=== PATIENT | male | born 1970 | race Caucasian/White ===

== ENCOUNTER 2020-10-04 14:43 | Emergency (ER) | payer MEDICAID, OTHER ==
[~2020-10-04] VITALS: Ht 185.4 cm; Wt 80.0 kg
[~2020-10-04 14:43] MED LIST: NO HOME MEDS
== END 2020-10-04 16:28 | disposition home or self-care (01) ==
LOC: ER 14:43
DX: U07.1 COVID-19 (principal); R53.1 Weakness
CPT/HCPCS: 36415; 87635; 99283

== ENCOUNTER 2020-10-24 13:23 | Emergency (ER) | payer OTHER ==
[~2020-10-24] VITALS: Ht 185.4 cm; Wt 64.0 kg
[2020-10-24 13:42] VITALS: BP 109/70
--- NOTE | 2020-10-24 15:53 | NUR ---
Pt evaluated by Provider and discharge ready prior to being brought back to a room. No RN interventions, See MSE by Provider. Pt discharged to follow up with PCP and/or return with worsening symptoms.
== END 2020-10-24 15:53 | disposition home or self-care (01) ==
LOC: ER 13:24
DX: Z00.00 Encounter for general adult medical examination without abnormal findings (principal); F17.200 Nicotine dependence, unspecified, uncomplicated
CPT/HCPCS: 99281

== ENCOUNTER 2020-10-31 13:17 | Emergency (ER) | payer MEDICAID ==
[~2020-10-31] VITALS: Ht 185.4 cm; Wt 69.1 kg
[2020-10-31 13:32] VITALS: BP 120/73
[2020-10-31 14:25] LABS: CLARITY,URINE CLOUDY (Clear); COLOR,URINE STRAW (Yellow); GLUCOSE, URINE NEGATIVE (Neg); KETONES,URINE NEGATIVE (Neg); LEUKOCYTE ESTERASE ,URINE MODERATE (Neg); NITRITES, URINE POSITIVE (Neg); OCCULT BLOOD,URINE TRACE-INTACT (Neg); PROTEIN,URINE NEGATIVE (Neg); UROBILINOGEN,URINE 0.2 E.U/dL (0.2-1.0)
[2020-10-31] MEDS ORDERED: MUPI22OI30 TOP (14:25)
[2020-10-31] MEDS ORDERED: DOXY100C77 PO (14:25)
[2020-10-31] MEDS ORDERED: CefTRIAXone 250MG IM Kit w/LIDOcaine IM ONE (14:25)
[2020-10-31 14:26] LABS: UA COLLECTION TYPE CLN CATCH MIDSTREAM
[2020-10-31 14:33] LABS: SQUAMOUS EPITHELIAL CELL,UR MODERATE /LPF (FEW)
[2020-10-31 14:34] LABS: MUCUS STRANDS NONE SEEN /LPF (Neg); TRANSITIONAL EPI CELLS,URINE FEW /HPF
[2020-10-31 14:35] LABS: BACTERIA,URINE 4+ /HPF (Neg); RBC,URINE 0-2 /HPF (0-2); WBC,URINE 50-100 /HPF (0-4)
== END 2020-10-31 15:20 | disposition home or self-care (01) ==
LOC: ER 13:18
DX: L73.8 Other specified follicular disorders (principal); F17.200 Nicotine dependence, unspecified, uncomplicated; F15.90 Other stimulant use, unspecified, uncomplicated; Z79.2 Long term (current) use of antibiotics
CPT/HCPCS: 36415; 81001; 87077; 87088; 87186; 87491; 87591; 96372; 99283; J0696

== ENCOUNTER 2021-02-11 20:48 | Emergency (ER) | payer MEDICAID ==
[~2021-02-11] VITALS: Ht 185.4 cm; Wt 72.2 kg
[2021-02-11 20:55] VITALS: BP 133/71
[2021-02-11] MEDS ORDERED: CefTRIAXone 1000mg IM Kit (w/lidocaine diluent) IM STA (21:22)
[2021-02-11] MEDS ORDERED: metroNIDAZOLE 500mg tablet PO ONE (21:25)
[2021-02-11] MEDS ORDERED: azithromycin 250mg tablet PO ONE (21:25)
[2021-02-11 22:28] LABS: CLARITY,URINE SLIGHTLY CLOUDY (Clear); COLOR,URINE YELLOW (Yellow); GLUCOSE, URINE NEGATIVE (Neg); KETONES,URINE NEGATIVE (Neg); LEUKOCYTE ESTERASE ,URINE SMALL (Neg); NITRITES, URINE NEGATIVE (Neg); OCCULT BLOOD,URINE TRACE-INTACT (Neg); PROTEIN,URINE NEGATIVE (Neg)
[2021-02-11 22:33] LABS: UA COLLECTION TYPE VOIDED
[2021-02-11 22:34] LABS: BACTERIA,URINE FEW /HPF (Neg); RBC,URINE 0-2 /HPF (0-2); SQUAMOUS EPITHELIAL CELL,UR FEW /LPF (FEW); WBC,URINE 30-50 /HPF (0-4)
== END 2021-02-11 21:44 | disposition home or self-care (01) ==
LOC: ER 20:49
DX: A64 Unspecified sexually transmitted disease (principal); F15.90 Other stimulant use, unspecified, uncomplicated
CPT/HCPCS: 36415; 81001; 87088; 87491; 87591; 96372; 99283; J0696; J3490

== ENCOUNTER 2021-11-05 16:57 | Emergency (ER) | payer MEDICAID ==
[~2021-11-05] VITALS: Ht 188 cm; Wt 75.0 kg
[2021-11-05] MEDS ORDERED: CefTRIAXone 500MG IM Kit w/LIDOcaine IM ONE (17:35)
[2021-11-05] MEDS ORDERED: DOXYCYCLINE 100MG CAPSULE PO ONE (17:35)
[2021-11-05 18:04] LABS: BASOPHILS % (AUTO) 0.3 % (0-1); EOSINOPHILS % (AUTO) 0.2 % (0-6); HEMATOCRIT 42.5 % (42.0-52.0); HEMOGLOBIN 14.7 g/dl (14.0-17.9); LYMPHOCYTES # (AUTO) 1.3 X10'3 (1.1-4.8); LYMPHOCYTES % (AUTO) 8.1 % (21-51); MEAN CORPUSCULAR HGB CONC 34.7 g/dL (33.0-36.5); MEAN PLATELET VOLUME 7.3 FL (7.4-10.4); MONOCYTES # (AUTO) 0.9 X10'3 (0-0.9); MONOCYTES % (AUTO) 5.6 % (2-12); NEUTROPHILS # (AUTO) 13.4 X10'3 (1.8-7.7); NEUTROPHILS % (AUTO) 85.8 % (42-75); PLATELET COUNT 233 X10'3 (140-440); RED BLOOD COUNT 4.33 X10'6 (4.70-6.10); RED CELL DISTRIBUTION WIDTH 12.4 % (11.5-14.5); WHITE BLOOD COUNT 15.7 X10'3 (4.5-11.0)
[2021-11-05 18:05] LABS: CLARITY,URINE CLOUDY (Clear); COLOR,URINE YELLOW (Yellow); GLUCOSE, URINE NEGATIVE (Neg); KETONES,URINE TRACE mg/dl (Neg); LEUKOCYTE ESTERASE ,URINE SMALL (Neg); NITRITES, URINE NEGATIVE (Neg); OCCULT BLOOD,URINE SMALL (Neg); PROTEIN,URINE TRACE mg/dl (Neg)
[2021-11-05 18:09] LABS: UA COLLECTION TYPE OTHER
[2021-11-05 18:19] LABS: ALANINE AMINOTRANSFERASE 14 U/L (12-78); ALBUMIN/GLOBULIN RATIO 0.7 (1.1-1.5); ALKALINE PHOSPHATASE 78 IU/L (46-116); ANION GAP 7 (8-16); ASPARTATE AMINO TRANSFERASE 13 U/L (10-37); BILIRUBIN,TOTAL 0.5 MG/DL (0.1-1.0); BLOOD UREA NITROGEN 15 MG/DL (7-18); CALCIUM 8.2 MG/DL (8.5-10.1); CHLORIDE 98 MMOL/L (99-107); CREATININE 1.15 MG/DL (0.60-1.10); GLUCOSE 144 MG/DL (70-104); MAGNESIUM 2.3 MG/DL (1.5-2.4); POTASSIUM 3.5 MMOL/L (3.5-5.1); SODIUM 135 MMOL/L (135-145); TOTAL CARBON DIOXIDE 30.1 MMOL/L (24-32); TOTAL PROTEIN 7.1 G/DL (6.4-8.2); eGFR 67 ML/MIN
[2021-11-05 18:20] LABS: BACTERIA,URINE 1+ /HPF (Neg); RBC,URINE 0-2 /HPF (0-2); SQUAMOUS EPITHELIAL CELL,UR FEW /LPF (FEW); WBC CLUMPS,URINE FEW /HPF (NEGATIVE); WBC,URINE 20-30 /HPF (0-4)
[2021-11-05] MEDS ORDERED: DOXY100C43 PO (19:06)
[2021-11-05 19:46] VITALS: BP 110/85
== END 2021-11-05 19:49 | disposition home or self-care (01) ==
LOC: ER 16:59
DX: Z11.3 Encounter for screening for infections with a predominantly sexual mode of transmission (principal); Z20.822 Contact with and (suspected) exposure to COVID-19; N39.0 Urinary tract infection, site not specified; R30.9 Painful micturition, unspecified; R50.9 Fever, unspecified; R51.9 Headache, unspecified; R42 Dizziness and giddiness; F17.200 Nicotine dependence, unspecified, uncomplicated; F15.90 Other stimulant use, unspecified, uncomplicated; Z90.89 Acquired absence of other organs; Z79.2 Long term (current) use of antibiotics
CPT/HCPCS: 36415; 80053; 81001; 83605; 83735; 84145; 85025; 87040; 87088; 87491; 87591; 87635; 96372; 99283; C9803; J0696

== ENCOUNTER 2022-01-28 04:22 | Emergency (ER) | payer MEDICAID ==
[~2022-01-28] VITALS: Ht 185.4 cm; Wt 75.0 kg
[2022-01-28] MEDS ORDERED: bacitracin 15gm ointment TP ONE (04:30)
[2022-01-28] MEDS ORDERED: TETanus/Pertussis (Acell)/Diphther VAC/PF (Tdap-Adult) 0.5ml syringe IMVAC ONE (04:30)
[2022-01-28] MEDS ORDERED: LIDOcaine/epinephrine/tetracaine TOPICAL sol 3 ML syringe TOP ONE (04:30)
--- NOTE | 2022-01-28 04:32 | NUR ---
Patient states he had a tetanus shot approx 3 years ago and he has not been vaccinated for covid.
[2022-01-28] MEDS ORDERED: amox tr/potassium clavulanate 875/125mg TAB PO ONE (04:35)
[2022-01-28] MEDS ORDERED: ondansetron 4mg rapidly disintigrating tab PO ONE (04:35)
--- NOTE | 2022-01-28 04:57 | NUR ---
Pt to CT, pink, no acute distress.
[2022-01-28] MEDS ORDERED: AMOX-419 PO (05:34)
--- NOTE | 2022-01-28 06:16 | NUR ---
Hand off report to dayshift RN. Pt pink, alert, PD with pt.
[2022-01-28 06:25] VITALS: BP 127/84
--- NOTE | 2022-01-28 07:09 | NUR ---
Pt and [employer] officer given and understands d/c instructions. Pt is medically cleared for care home.
== END 2022-01-28 07:09 ==
LOC: ER 04:23
DX: S70.211A Abrasion, right hip, initial encounter (principal); S30.810A Abrasion of lower back and pelvis, initial encounter; S50.311A Abrasion of right elbow, initial encounter; S00.81XA Abrasion of other part of head, initial encounter; F15.90 Other stimulant use, unspecified, uncomplicated; Z90.49 Acquired absence of other specified parts of digestive tract; Z79.2 Long term (current) use of antibiotics; W54.0XXA Bitten by dog, initial encounter; Y93.89 Activity, other specified; Y92.89 Other specified places as the place of occurrence of the external cause; Y99.8 Other external cause status
CPT/HCPCS: 70450; 72170; 73080; 73610; 90471; 90715; 99284